=== PATIENT | male | born 1970 | race Caucasian/White ===

== ENCOUNTER 2017-06-25 12:23 | Inpatient (IN) | payer MEDICAID ==
[~2017-06-25] VITALS: Ht 177.8 cm; Wt 77.5 kg
[~2017-06-25 12:23] MED LIST: ALBU90AE INH
[2017-06-25] MEDS ORDERED: ALBUTEROL/IPRATROPIUM 2.5MG/0.5MG, 3 ML ONE (13:00)
[2017-06-25] MEDS ORDERED: MAGNESIUM SULFATE PMX 2GM/50ML 50 ML IVPB ONE (13:00)
[2017-06-25] MEDS ORDERED: SODIUM CHLORIDE FLUSH 10ML SYR IVF ONE (13:00)
[2017-06-25] MEDS ORDERED: methylPREDNISolone SOD SUCC 125 MG/2 ML IVP ONE (13:00)
[2017-06-25] MEDS ORDERED: methylPREDNISolone SOD SUCC 125 MG/2 ML ONE (13:07)
[2017-06-25 13:09] LABS: HEMATOCRIT 54.1 % (39.2-51.8); HEMOGLOBIN 18.8 g/dL (13.7-18.0); WHITE BLOOD COUNT 9.3 x10^3/uL (3.4-10)
[2017-06-25 13:14] LABS: ABG COLLECTION SITE LEFT RADIAL; COLLATERAL CIRCULATION TESTING NORMAL
[2017-06-25] MEDS ORDERED: GUAI400T66 PO (13:14)
[2017-06-25] MEDS ORDERED: TIOT18CA INH (13:14)
[2017-06-25] MEDS ORDERED: ALBU18HF INH (13:14)
[2017-06-25] MEDS ORDERED: FLUT1AER INH (13:14)
[2017-06-25 13:23] LABS: BLOOD UREA NITROGEN 10 mg/dL (7-18)
[2017-06-25 13:28] LABS: ASPARTATE AMINO TRANSFERASE 110 U/L (15-37)
[2017-06-25 13:29] LABS: IS PT STATUS REG ER OR PRE ER? YES
[2017-06-25] MEDS ORDERED: ALBUTEROL/IPRATROPIUM 2.5MG/0.5MG, 3 ML NEB ONE (13:30)
[2017-06-25] MEDS ORDERED: SODIUM CHLORIDE FLUSH 10ML SYR IVF PRN (14:30)
[2017-06-25] MEDS ORDERED: ALBUTEROL/IPRATROPIUM 2.5MG/0.5MG, 3 ML NPPB ONE (14:30)
[2017-06-25] MEDS ORDERED: POLYETHYLENE GLYCOL 17 GM PACKET PO PRN (15:30)
[2017-06-25] MEDS ORDERED: ALBUTEROL HFA 90 MCG/SPRAY INH PRN (15:30)
[2017-06-25] MEDS: ENOXAPARIN 40 MG/0.4 ML SQ SCH (15:30)
[2017-06-25] MEDS ORDERED: ACETAMINOPHEN 325 MG TABLET PO PRN (15:30)
[2017-06-25] MEDS ORDERED: LORazepam 2 MG/ML, 1ML IV PRN (15:30)
[2017-06-25] MEDS ORDERED: IPRATROPIUM 0.5 MG/2.5 ML INHA HHN SCH (15:30)
[2017-06-25] MEDS ORDERED: ONDANSETRON 2MG/ML, 2ML IVPush PRN (15:30)
[2017-06-25] MEDS ORDERED: morphine SULFATE 10 MG/ML, 1ML IVPush PRN (15:30)
[2017-06-25 15:59] VITALS: BP 131/87
[2017-06-25] MEDS: CEFTRIAXONE PMX 1GM/50ML 50 ML IV SCH (16:49)
[2017-06-25] MEDS: NICOTINE 14MG/24 HR PATCH.TD24 TD SCH (16:49)
[2017-06-25] MEDS: NS + 20MEQ KCL 1,000 ML IV SCH (16:49)
[2017-06-25] MEDS: ALBUTEROL/IPRATROPIUM 2.5MG/0.5MG, 3 ML NPPB SCH ×2 (17:06→20:00)
[2017-06-25] MEDS: AZITHROMYCIN 500 MG in SODIUM CHLORIDE 0.9% 250 ML IV SCH (17:57)
[2017-06-25 19:00] VITALS: BP 122/72
[2017-06-25] MEDS: FAMOTIDINE 20 MG TABLET PO SCH (20:49)
[2017-06-25] MEDS: methylPREDNISolone SOD SUCC 125 MG/2 ML IVPush SCH (20:49)
[2017-06-25] MEDS: LORazepam 2 MG/ML, 1ML IV PRN (21:06)
[2017-06-26 00:38] VITALS: BP 127/87
[2017-06-26] MEDS: methylPREDNISolone SOD SUCC 125 MG/2 ML IVPush SCH ×3 (05:35→21:19)
[2017-06-26] MEDS: NS + 20MEQ KCL 1,000 ML IV SCH ×4 (05:35→16:49)
[2017-06-26] MEDS: ALBUTEROL/IPRATROPIUM 2.5MG/0.5MG, 3 ML NPPB SCH ×4 (06:15→19:47)
[2017-06-26 06:50] VITALS: BP 149/96
[2017-06-26 07:53] LABS: ASPARTATE AMINO TRANSFERASE 116 U/L (15-37); BLOOD UREA NITROGEN 12 mg/dL (7-18)
[2017-06-26] MEDS: FAMOTIDINE 20 MG TABLET PO SCH ×2 (08:47→21:19)
[2017-06-26] MEDS: FOLIC ACID 1 MG TABLET PO SCH (08:47)
[2017-06-26] MEDS: THIAMINE 100MG TABLET PO SCH (08:47)
[2017-06-26] MEDS: FLUTICASONE/VILANTEROL 100-25MCG/INH INH SCH (08:47)
[2017-06-26] MEDS: MULTIVITAMIN 1 TABLET PO SCH (08:47)
[2017-06-26] MEDS: DOCUSATE 100 MG CAPSULE PO PRN (08:48)
[2017-06-26] MEDS: GUAIFENESIN 200 MG TABLET PO SCH (08:48)
[2017-06-26] MEDS: LORazepam 2 MG/ML, 1ML IV PRN ×2 (08:48→16:55)
[2017-06-26 09:21] LABS: DIFF TOTAL CELLS COUNTED 100 CELL DIFF; HEMATOCRIT 50.9 % (39.2-51.8); HEMOGLOBIN 17.6 g/dL (13.7-18.0); WHITE BLOOD COUNT 11.5 x10^3/uL (3.4-10)
[2017-06-26 09:24] LABS: VERIFY COUNTS? YES
[2017-06-26 12:35] VITALS: BP 150/97
[2017-06-26] MEDS: OXYcodone IR 5MG TABLET PO PRN (14:19)
[2017-06-26] MEDS: ENOXAPARIN 40 MG/0.4 ML SQ SCH (15:30)
[2017-06-26] MEDS: AZITHROMYCIN 500 MG in SODIUM CHLORIDE 0.9% 250 ML IV SCH (16:49)
[2017-06-26] MEDS: NICOTINE 14MG/24 HR PATCH.TD24 TD SCH (16:49)
[2017-06-26] MEDS: CEFTRIAXONE PMX 1GM/50ML 50 ML IV SCH (18:04)
[2017-06-26 20:57] VITALS: BP 129/87
[2017-06-26] MEDS: LORazepam 0.5MG TABLET PO PRN (21:19)
[2017-06-27] MEDS: LORazepam 0.5MG TABLET PO PRN (02:19)
[2017-06-27 02:58] VITALS: BP 145/94
[2017-06-27] MEDS: NS + 20MEQ KCL 1,000 ML IV SCH (05:04)
[2017-06-27] MEDS: methylPREDNISolone SOD SUCC 125 MG/2 ML IVPush SCH ×3 (05:04→22:48)
[2017-06-27 06:26] LABS: BLOOD UREA NITROGEN 12 mg/dL (7-18)
[2017-06-27 06:30] LABS: ASPARTATE AMINO TRANSFERASE 99 U/L (15-37)
[2017-06-27 06:43] VITALS: BP 128/75
[2017-06-27] MEDS: ALBUTEROL/IPRATROPIUM 2.5MG/0.5MG, 3 ML NPPB SCH ×4 (07:00→20:00)
[2017-06-27] MEDS: FLUTICASONE/VILANTEROL 100-25MCG/INH INH SCH (08:58)
[2017-06-27] MEDS: FOLIC ACID 1 MG TABLET PO SCH (08:58)
[2017-06-27] MEDS: GUAIFENESIN 200 MG TABLET PO SCH (08:59)
[2017-06-27] MEDS: FAMOTIDINE 20 MG TABLET PO SCH ×2 (08:59→22:48)
[2017-06-27] MEDS: MULTIVITAMIN 1 TABLET PO SCH (08:59)
[2017-06-27] MEDS: OXYcodone IR 5MG TABLET PO PRN ×3 (08:59→19:48)
[2017-06-27] MEDS: THIAMINE 100MG TABLET PO SCH (08:59)
[2017-06-27] MEDS: LORazepam 1MG TABLET PO PRN ×4 (09:08→23:02)
[2017-06-27 13:07] VITALS: BP 136/82
[2017-06-27] MEDS: ENOXAPARIN 40 MG/0.4 ML SQ SCH (15:30)
[2017-06-27] MEDS: CEFTRIAXONE PMX 1GM/50ML 50 ML IV SCH (17:45)
[2017-06-27] MEDS: NICOTINE 14MG/24 HR PATCH.TD24 TD SCH (17:46)
[2017-06-27 18:58] VITALS: BP 162/91
[2017-06-27] MEDS: AZITHROMYCIN 500 MG in SODIUM CHLORIDE 0.9% 250 ML IV SCH (19:29)
[2017-06-28 00:21] VITALS: BP 145/90
[2017-06-28] MEDS: METHOCARBAMOL 500 MG TABLET PO PRN (01:19)
[2017-06-28] MEDS: OXYcodone IR 5MG TABLET PO PRN ×4 (01:19→19:43)
[2017-06-28] MEDS: LORazepam 1MG TABLET PO PRN ×3 (01:27→22:04)
[2017-06-28] MEDS: methylPREDNISolone SOD SUCC 125 MG/2 ML IVPush SCH ×3 (05:11→21:45)
[2017-06-28 07:10] VITALS: BP 151/93
[2017-06-28] MEDS: ALBUTEROL/IPRATROPIUM 2.5MG/0.5MG, 3 ML NPPB SCH ×5 (08:24→23:20)
[2017-06-28] MEDS: THIAMINE 100MG TABLET PO SCH (10:10)
[2017-06-28] MEDS: FAMOTIDINE 20 MG TABLET PO SCH ×2 (10:10→21:45)
[2017-06-28] MEDS: FLUTICASONE/VILANTEROL 100-25MCG/INH INH SCH (10:10)
[2017-06-28] MEDS: MULTIVITAMIN 1 TABLET PO SCH (10:10)
[2017-06-28] MEDS: FOLIC ACID 1 MG TABLET PO SCH (10:11)
[2017-06-28] MEDS: GUAIFENESIN 200 MG TABLET PO SCH (10:11)
[2017-06-28] MEDS: LORazepam 2 MG/ML, 1ML IV PRN (10:16)
[2017-06-28 13:10] VITALS: BP 143/85
[2017-06-28] MEDS: ENOXAPARIN 40 MG/0.4 ML SQ SCH (15:30)
[2017-06-28] MEDS: CEFTRIAXONE PMX 1GM/50ML 50 ML IV SCH (16:36)
[2017-06-28] MEDS: LORazepam 0.5MG TABLET PO PRN (16:36)
[2017-06-28] MEDS: NICOTINE 14MG/24 HR PATCH.TD24 TD SCH (16:36)
[2017-06-28] MEDS ORDERED: POTASSIUM PHOSPHATE 22 MEQ in SODIUM CHLORIDE 0.9% 500 ML IV ONE (17:30)
[2017-06-28] MEDS: AZITHROMYCIN 500 MG in SODIUM CHLORIDE 0.9% 250 ML IV SCH (17:49)
[2017-06-28 19:00] VITALS: BP 154/100
[2017-06-28 19:41] VITALS: BP 136/89
[2017-06-28] MEDS: DOCUSATE 100 MG CAPSULE PO PRN (22:04)
[2017-06-29 02:06] VITALS: BP 139/76
[2017-06-29] MEDS: OXYcodone IR 5MG TABLET PO PRN ×4 (05:02→19:03)
[2017-06-29] MEDS: methylPREDNISolone SOD SUCC 125 MG/2 ML IVPush SCH ×3 (05:03→22:10)
[2017-06-29 05:28] LABS: HEMATOCRIT 52.2 % (39.2-51.8); HEMOGLOBIN 18.1 g/dL (13.7-18.0); WHITE BLOOD COUNT 13.6 x10^3/uL (3.4-10)
[2017-06-29 05:35] LABS: BLOOD UREA NITROGEN 15 mg/dL (7-18)
[2017-06-29 05:40] LABS: ASPARTATE AMINO TRANSFERASE 79 U/L (15-37)
[2017-06-29] MEDS: ALBUTEROL/IPRATROPIUM 2.5MG/0.5MG, 3 ML NPPB SCH ×4 (06:00→19:55)
[2017-06-29 07:34] LABS: DIFF TOTAL CELLS COUNTED 100 CELL DIFF
[2017-06-29 07:35] LABS: VERIFY COUNTS? YES
[2017-06-29 08:29] VITALS: BP 125/81
[2017-06-29] MEDS: FAMOTIDINE 20 MG TABLET PO SCH ×2 (09:07→22:11)
[2017-06-29] MEDS: GUAIFENESIN 200 MG TABLET PO SCH (09:07)
[2017-06-29] MEDS: FLUTICASONE/VILANTEROL 100-25MCG/INH INH SCH (09:07)
[2017-06-29] MEDS: FOLIC ACID 1 MG TABLET PO SCH (09:07)
[2017-06-29] MEDS: THIAMINE 100MG TABLET PO SCH (09:07)
[2017-06-29] MEDS: MULTIVITAMIN 1 TABLET PO SCH (09:07)
[2017-06-29] MEDS: LORazepam 2 MG/ML, 1ML IV PRN ×4 (09:25→22:23)
[2017-06-29] MEDS: DOCUSATE 100 MG CAPSULE PO PRN (09:25)
[2017-06-29 14:30] VITALS: BP_SYST 124; BP_SYST 142; BP_DIAS 56; BP_DIAS 70
[2017-06-29] MEDS: NICOTINE 14MG/24 HR PATCH.TD24 TD SCH (15:30)
[2017-06-29] MEDS: ENOXAPARIN 40 MG/0.4 ML SQ SCH (15:30)
[2017-06-29] MEDS: CEFTRIAXONE PMX 1GM/50ML 50 ML IV SCH (17:38)
[2017-06-29] MEDS: INSULIN ASPART 100 UNITS/ML, PEN SQ-INSULIN SCH ×2 (17:39→22:16)
[2017-06-29] MEDS: AZITHROMYCIN 500 MG in SODIUM CHLORIDE 0.9% 250 ML IV SCH (19:03)
[2017-06-29 19:27] VITALS: BP 135/93
[2017-06-29] MEDS: METHOCARBAMOL 500 MG TABLET PO PRN (22:11)
[2017-06-30] MEDS: OXYcodone IR 5MG TABLET PO PRN ×3 (00:03→13:17)
[2017-06-30 01:29] VITALS: BP 137/98
[2017-06-30] MEDS: methylPREDNISolone SOD SUCC 125 MG/2 ML IVPush SCH ×3 (05:21→21:10)
[2017-06-30] MEDS: LORazepam 1MG TABLET PO PRN ×3 (05:28→21:21)
[2017-06-30 05:30] LABS: BLOOD UREA NITROGEN 15 mg/dL (7-18)
[2017-06-30 05:35] LABS: ASPARTATE AMINO TRANSFERASE 75 U/L (15-37)
[2017-06-30 08:15] VITALS: BP 138/96
[2017-06-30] MEDS: ALBUTEROL/IPRATROPIUM 2.5MG/0.5MG, 3 ML NPPB SCH ×4 (08:20→19:59)
[2017-06-30] MEDS: MULTIVITAMIN 1 TABLET PO SCH (08:21)
[2017-06-30] MEDS: FLUTICASONE/VILANTEROL 100-25MCG/INH INH SCH (08:21)
[2017-06-30] MEDS: FOLIC ACID 1 MG TABLET PO SCH (08:21)
[2017-06-30] MEDS: FAMOTIDINE 20 MG TABLET PO SCH ×2 (08:21→21:10)
[2017-06-30] MEDS: THIAMINE 100MG TABLET PO SCH (08:21)
[2017-06-30] MEDS: GUAIFENESIN 200 MG TABLET PO SCH (08:21)
[2017-06-30] MEDS: INSULIN ASPART 100 UNITS/ML, PEN SQ-INSULIN SCH ×4 (08:21→21:22)
[2017-06-30] MEDS: LORazepam 0.5MG TABLET PO PRN (11:40)
[2017-06-30] MEDS: ENOXAPARIN 40 MG/0.4 ML SQ SCH (15:52)
[2017-06-30] MEDS: NICOTINE 14MG/24 HR PATCH.TD24 TD SCH (15:52)
[2017-06-30 15:59] VITALS: BP 142/99
[2017-06-30] MEDS: CEFTRIAXONE PMX 1GM/50ML 50 ML IV SCH (17:14)
[2017-06-30] MEDS: AZITHROMYCIN 500 MG in SODIUM CHLORIDE 0.9% 250 ML IV SCH (18:00)
[2017-06-30 18:46] VITALS: BP 143/89
[2017-06-30] MEDS: ALBUTEROL SULFATE 2.5 MG/3 ML HHN PRN (21:38)
[2017-07-01 02:04] VITALS: BP 145/91
[2017-07-01] MEDS: methylPREDNISolone SOD SUCC 125 MG/2 ML IVPush SCH ×3 (04:28→18:27)
[2017-07-01] MEDS: LORazepam 1MG TABLET PO PRN (06:10)
[2017-07-01] MEDS: ALBUTEROL/IPRATROPIUM 2.5MG/0.5MG, 3 ML NPPB SCH ×4 (07:20→19:27)
[2017-07-01 07:25] VITALS: BP 147/98
[2017-07-01] MEDS: THIAMINE 100MG TABLET PO SCH (08:10)
[2017-07-01] MEDS: MULTIVITAMIN 1 TABLET PO SCH (08:10)
[2017-07-01] MEDS: FLUTICASONE/VILANTEROL 100-25MCG/INH INH SCH (08:10)
[2017-07-01] MEDS: GUAIFENESIN 200 MG TABLET PO SCH (08:10)
[2017-07-01] MEDS: FOLIC ACID 1 MG TABLET PO SCH (08:10)
[2017-07-01] MEDS: FAMOTIDINE 20 MG TABLET PO SCH ×2 (08:10→19:45)
[2017-07-01] MEDS: INSULIN ASPART 100 UNITS/ML, PEN SQ-INSULIN SCH ×4 (08:11→19:49)
[2017-07-01 12:01] VITALS: BP 144/98
[2017-07-01] MEDS: ENOXAPARIN 40 MG/0.4 ML SQ SCH (15:30)
[2017-07-01] MEDS ORDERED: HALOPERIDOL 5 MG/ML IM PRN (17:00)
[2017-07-01] MEDS: NICOTINE 14MG/24 HR PATCH.TD24 TD SCH (17:04)
[2017-07-01] MEDS: LORazepam 2 MG/ML, 1ML IVPush PRN (17:16)
[2017-07-01] MEDS: CEFTRIAXONE PMX 1GM/50ML 50 ML IV SCH (17:16)
[2017-07-01] MEDS: AZITHROMYCIN 500 MG in SODIUM CHLORIDE 0.9% 250 ML IV SCH (18:27)
[2017-07-01] MEDS: OXYcodone IR 5MG TABLET PO PRN (19:45)
[2017-07-01 20:00] VITALS: BP 150/101
[2017-07-01] MEDS: INSULIN DETEMIR 100 UNITS/ML, PEN SQ-INSULIN SCH (21:17)
[2017-07-02] MEDS: methylPREDNISolone SOD SUCC 125 MG/2 ML IVPush SCH ×4 (00:35→18:44)
[2017-07-02] MEDS: LORazepam 2 MG/ML, 1ML IVPush PRN ×3 (02:32→22:31)
[2017-07-02 03:35] VITALS: BP 143/101
[2017-07-02 06:31] VITALS: BP 148/90
[2017-07-02] MEDS: ALBUTEROL/IPRATROPIUM 2.5MG/0.5MG, 3 ML NPPB SCH ×2 (06:50→10:00)
[2017-07-02 07:52] VITALS: BP 146/96
[2017-07-02] MEDS: FLUTICASONE/VILANTEROL 100-25MCG/INH INH SCH (08:41)
[2017-07-02] MEDS: FOLIC ACID 1 MG TABLET PO SCH (08:41)
[2017-07-02] MEDS: INSULIN ASPART 100 UNITS/ML, PEN SQ-INSULIN SCH ×4 (08:41→20:43)
[2017-07-02] MEDS: THIAMINE 100MG TABLET PO SCH (08:41)
[2017-07-02] MEDS: MULTIVITAMIN 1 TABLET PO SCH (08:41)
[2017-07-02] MEDS: GUAIFENESIN 200 MG TABLET PO SCH (08:41)
[2017-07-02] MEDS: FAMOTIDINE 20 MG TABLET PO SCH ×2 (08:41→20:43)
[2017-07-02 12:00] VITALS: BP 144/91
[2017-07-02] MEDS: ENOXAPARIN 40 MG/0.4 ML SQ SCH (16:06)
[2017-07-02] MEDS: NICOTINE 14MG/24 HR PATCH.TD24 TD SCH (16:07)
[2017-07-02] MEDS: CEFTRIAXONE PMX 1GM/50ML 50 ML IV SCH (18:03)
[2017-07-02] MEDS: AZITHROMYCIN 500 MG in SODIUM CHLORIDE 0.9% 250 ML IV SCH (18:44)
[2017-07-02 20:09] VITALS: BP 146/93
[2017-07-02] MEDS: ALBUTEROL SULFATE 2.5 MG/3 ML HHN PRN (20:27)
[2017-07-02] MEDS: OXYcodone IR 5MG TABLET PO PRN (20:43)
[2017-07-02] MEDS: INSULIN DETEMIR 100 UNITS/ML, PEN SQ-INSULIN SCH (20:44)
[2017-07-02] MEDS: METHOCARBAMOL 500 MG TABLET PO PRN (21:40)
[2017-07-03] MEDS: methylPREDNISolone SOD SUCC 125 MG/2 ML IVPush SCH ×4 (01:42→21:00)
[2017-07-03 02:30] VITALS: BP 151/98
[2017-07-03] MEDS: THIAMINE 100MG TABLET PO SCH (08:30)
[2017-07-03] MEDS: FOLIC ACID 1 MG TABLET PO SCH (08:30)
[2017-07-03] MEDS: GUAIFENESIN 200 MG TABLET PO SCH (08:30)
[2017-07-03] MEDS: MULTIVITAMIN 1 TABLET PO SCH (08:30)
[2017-07-03] MEDS: FAMOTIDINE 20 MG TABLET PO SCH ×2 (08:30→21:00)
[2017-07-03] MEDS: FLUTICASONE/VILANTEROL 100-25MCG/INH INH SCH (08:31)
[2017-07-03] MEDS: INSULIN ASPART 100 UNITS/ML, PEN SQ-INSULIN SCH ×4 (08:31→21:00)
[2017-07-03] MEDS: LORazepam 2 MG/ML, 1ML IVPush PRN ×2 (08:37→19:26)
[2017-07-03 08:47] VITALS: BP 143/97
[2017-07-03] MEDS ORDERED: INSULIN ASPART 100 UNITS/ML, PEN SQ-INSULIN SCH (11:30)
[2017-07-03] MEDS ORDERED: CEFTRIAXONE PMX 1GM/50ML 50 ML IV SCH (15:30)
[2017-07-03] MEDS ORDERED: AZITHROMYCIN 500 MG in SODIUM CHLORIDE 0.9% 250 ML IV SCH (15:30)
[2017-07-03] MEDS: ENOXAPARIN 40 MG/0.4 ML SQ SCH (15:30)
[2017-07-03] MEDS: NICOTINE 14MG/24 HR PATCH.TD24 TD SCH (15:52)
[2017-07-03 15:56] VITALS: BP 142/95
[2017-07-03 20:51] VITALS: BP 149/91
[2017-07-03] MEDS ORDERED: INSULIN DETEMIR 100 UNITS/ML, PEN SQ-INSULIN SCH (21:00)
[2017-07-04] MEDS: LORazepam 2 MG/ML, 1ML IVPush PRN ×2 (00:05→12:11)
[2017-07-04 00:07] VITALS: BP 147/89
[2017-07-04 06:10] LABS: HEMATOCRIT 53.7 % (39.2-51.8); HEMOGLOBIN 18.4 g/dL (13.7-18.0); WHITE BLOOD COUNT 16.3 x10^3/uL (3.4-10)
[2017-07-04 06:21] LABS: BLOOD UREA NITROGEN 23 mg/dL (7-18)
[2017-07-04 06:42] VITALS: BP 152/98
[2017-07-04 06:50] LABS: ASPARTATE AMINO TRANSFERASE 98 U/L (15-37)
[2017-07-04] MEDS ORDERED: SODIUM CHLORIDE 0.9% 1,000 ML IV SCH (08:40)
[2017-07-04] MEDS: FAMOTIDINE 20 MG TABLET PO SCH (09:46)
[2017-07-04] MEDS: FLUTICASONE/VILANTEROL 100-25MCG/INH INH SCH (09:46)
[2017-07-04] MEDS: INSULIN ASPART 100 UNITS/ML, PEN SQ-INSULIN SCH ×2 (09:46→12:12)
[2017-07-04] MEDS: MULTIVITAMIN 1 TABLET PO SCH (09:46)
[2017-07-04] MEDS: FOLIC ACID 1 MG TABLET PO SCH (09:46)
[2017-07-04] MEDS: GUAIFENESIN 200 MG TABLET PO SCH (09:46)
[2017-07-04] MEDS: THIAMINE 100MG TABLET PO SCH (09:47)
[2017-07-04] MEDS: methylPREDNISolone SOD SUCC 125 MG/2 ML IVPush SCH (09:47)
[2017-07-04] MEDS ORDERED: PRED20TA PO (11:35)
[2017-07-04] MEDS ORDERED: FOLI-17 PO (11:35)
[2017-07-04] MEDS ORDERED: THIA100T6 PO (11:35)
[2017-07-04] MEDS ORDERED: LORA-445 PO (11:37)
[2017-07-04] MEDS: ALBUTEROL SULFATE 2.5 MG/3 ML HHN PRN (12:00)
== END 2017-07-04 13:40 | disposition home or self-care (01) | DRG 896 ==
LOC: ED 13:30 → EDIP 14:27 → SUATTDRO 14:52 → 4EST 15:12 → DCLOUNGE 07-04 13:25
PROVIDERS: ADMIT Hospitalist; ATTEND Family Medicine
DX: F10.239 Alcohol dependence with withdrawal, unspecified (principal); J96.01 Acute respiratory failure with hypoxia; E44.0 Moderate protein-calorie malnutrition; D69.6 Thrombocytopenia, unspecified; D75.1 Secondary polycythemia; E83.39 Other disorders of phosphorus metabolism; J44.1 Chronic obstructive pulmonary disease with (acute) exacerbation; D53.9 Nutritional anemia, unspecified; D72.825 Bandemia; Y90.9 Presence of alcohol in blood, level not specified; F12.90 Cannabis use, unspecified, uncomplicated; F17.210 Nicotine dependence, cigarettes, uncomplicated; G89.29 Other chronic pain; T38.0X5A Adverse effect of glucocorticoids and synthetic analogues, initial encounter; Z66 Do not resuscitate; F41.9 Anxiety disorder, unspecified; R73.9 Hyperglycemia, unspecified; Z59.0 Homelessness; Z68.24 Body mass index [BMI] 24.0-24.9, adult
CPT/HCPCS: 36415; 36600; 71010; 80053; 80307; 81003; 82607; 82746; 82803; 82962; 83036; 83735; 84100; 84484; 85025; 85610; 85730; 93005; 94640; 96365; 96366; 96375; J0456; J0696; J1650; J1815; J2405; J3480; J7613; J7620; G0479; J2060; J2930; J3475; J7040; J7050